=== PATIENT | female | born 1985 | race Native Hawaiian/Other Pacific Islander ===

== ENCOUNTER 2021-01-03 11:44 | Emergency (ER) | payer OTHER ==
[~2021-01-03] VITALS: Ht 157.5 cm; Wt 74.8 kg
[2021-01-03 11:53] VITALS: TEMP 98.1
[2021-01-03 13:25] VITALS: BP 133/87
== END 2021-01-03 13:25 | disposition home or self-care (01) ==
LOC: ED 11:44
DX: S91.331A Puncture wound without foreign body, right foot, initial encounter (principal); M25.562 Pain in left knee; W22.8XXA Striking against or struck by other objects, initial encounter; X50.1XXA Overexertion from prolonged static or awkward postures, initial encounter; Y93.01 Activity, walking, marching and hiking; Y92.096 Garden or yard of other non-institutional residence as the place of occurrence of the external cause
CPT/HCPCS: 90471; 90715; 96372; 99283; J0690; J1885

== ENCOUNTER 2021-07-08 14:48 | Emergency (ER) | payer OTHER ==
[~2021-07-08] VITALS: Ht 157.5 cm; Wt 74.8 kg
[2021-07-08 14:56] VITALS: BP 140/82; TEMP 98
== END 2021-07-08 15:45 | disposition home or self-care (01) ==
LOC: ED 14:48
DX: H60.8X2 Other otitis externa, left ear (principal)
CPT/HCPCS: 99282

== ENCOUNTER 2023-02-05 16:59 | Emergency (ER) | payer OTHER ==
[~2023-02-05] VITALS: Ht 157.5 cm; Wt 61.2 kg
[2023-02-05 17:05] VITALS: BP 135/86; TEMP 98.4
== END 2023-02-05 19:35 | disposition home or self-care (01) ==
LOC: ED 16:59
DX: L03.116 Cellulitis of left lower limb (principal); S80.12XA Contusion of left lower leg, initial encounter; W10.9XXA Fall (on) (from) unspecified stairs and steps, initial encounter; Y92.098 Other place in other non-institutional residence as the place of occurrence of the external cause
CPT/HCPCS: 81025; 96372; 99283; J1885